=== PATIENT | female | born 1985 | race Two or more races ===

== ENCOUNTER 2019-06-26 18:20 | Emergency (ER) | payer SELFPAY ==
[~2019-06-26] VITALS: Ht 177.8 cm; Wt 80.3 kg
[2019-06-26] MEDS ORDERED: Lidocaine 1% 10mg/ml/EPI 0.01mg/ml 20ml INJ ONE (18:45)
[2019-06-26] MEDS ORDERED: Tetanus/Diptheria/Pertussis IM ONE (18:45)
[2019-06-26 19:30] VITALS: BP 114/73
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
== END 2019-06-26 22:00 | disposition home or self-care (01) ==
LOC: EMR 22:00
DX: S81.811A Laceration without foreign body, right lower leg, initial encounter (principal); Z23 Encounter for immunization; X58.XXXA Exposure to other specified factors, initial encounter; Y92.9 Unspecified place or not applicable
CPT/HCPCS: 90471; 90715; 99283